=== PATIENT | female | born 1950 | race Caucasian/White ===

== ENCOUNTER → 2016-11-16 | Outpatient (CLI) | payer MEDICARE ==
--- NOTE | 2016-11-16 11:58 | REPMRS ---
Patient History The patient states she had a clinical breast exam in Patient is postmenopausal. Family history of colorectal cancer in father at age 50 or over, prostate cancer in brother at age 50 or over, and colorectal cancer in brother at age 50 or over. Digital Woman Screen Mammo: November 16, 2016 - Exam #: [id number] Bilateral CC and MLO view(s) were taken. Technologist: Chichi Guadalupe, Technologist Prior study comparison: October 08, 2015, digital woman screen mammo performed at [facility]. January 19, 2014, digital woman screen mammo performed at [facility]. FINDINGS: There are scattered fibroglandular densities. There is a fairly symmetric fibroglandular pattern in both breasts. There has been no interval development of masses, areas of architectural distortion or clusters of microcalcifications typical of malignancy. No significant changes when compared with prior studies. ASSESSMENT: BI-RADS/ACR category 2 mammogram. Benign finding(s). Recommendation Routine screening mammogram of both breasts in 1 year (for women over age 40). This mammogram was interpreted with the aid of an FDA-approved computer-aided dectection system. Electronically Signed By: Marquez Turner MD 11/16/16 [id number]
== END ==
LOC: M WHC 10:47
PROVIDERS: ATTEND Nurse Practitioner Family
DX: Z12.31 Encounter for screening mammogram for malignant neoplasm of breast (principal); Z78.0 Asymptomatic menopausal state; Z80.0 Family history of malignant neoplasm of digestive organs; Z01.419 Encounter for gynecological examination (general) (routine) without abnormal findings; Z12.12 Encounter for screening for malignant neoplasm of rectum; N95.2 Postmenopausal atrophic vaginitis; N81.10 Cystocele, unspecified; N81.6 Rectocele
CPT/HCPCS: 82270; G0101; G0202

== ENCOUNTER → 2017-11-22 | Outpatient (CLI) | payer MEDICARE | LOC: M WHC 10:58 | DX: Z12.31 Encounter for screening mammogram for malignant neoplasm of breast (principal); Z01.419 Encounter for gynecological examination (general) (routine) without abnormal findings (principal); Z78.0 Asymptomatic menopausal state; Z80.0 Family history of malignant neoplasm of digestive organs; Z12.12 Encounter for screening for malignant neoplasm of rectum; N95.2 Postmenopausal atrophic vaginitis; N81.10 Cystocele, unspecified; N81.6 Rectocele | CPT/HCPCS: 77067 ==

== ENCOUNTER → 2018-11-21 | Outpatient (CLI) | payer MEDICARE ==
--- NOTE | 2018-11-21 18:59 | REPMRS ---
Patient History The patient states she had a clinical breast exam in 11/2018. Patient is postmenopausal. Family history of colorectal cancer at age 50 or over in brother, colorectal cancer at age 50 or over in father, prostate cancer at age 50 or over in brother. No Hormone Replacement Therapy Digital Woman Screen Mammo: November 21, 2018 - Exam #: [id number] Bilateral CC and MLO view(s) were taken. Technologist: Cynthia Lopez, Technologist Prior study comparison: November 22, 2017, digital woman screen mammo performed at [facility]. November 16, 2016, digital woman screen mammo performed at [facility]. FINDINGS: There are scattered fibroglandular densities. There has been no change in the appearance of the mammogram from the prior studies. There is a mild amount of residual fibroglandular tissue mostly in the retroareolar zones, which is fairly symmetric. There is no interval development of dominant mass, architectural distortion, or clustered microcalcification suggestive of malignancy. There are bilateral benign arterial calcifications noted. There are scattered, small, benign calcifications of doubtful clinical significance. 3-D tomosynthesis shows no additional findings. The patient's Tyrer-Cuzick lifetime risk assessment score is 2.0 %. No significant changes when compared with prior studies. Assessment: BI-RADS/ACR category 2 mammogram. Benign Findings. Recommendation Routine screening mammogram in 1 year (for women over age 40). This mammogram was interpreted with the aid of an FDA-approved computer-aided dectection system. A. Negative x-ray reports should not delay biopsy if a dominant or clinically suspicious mass is present. B. Four to eight percent of cancers are not identified by mammography. C. Adenosis and dense breast may obscure an underlying neoplasm. Electronically Signed By: Jamie Worley MD 11/21/18 [id number]
== END ==
LOC: M WHC 15:06
PROVIDERS: ATTEND Nurse Practitioner Family
DX: Z01.419 Encounter for gynecological examination (general) (routine) without abnormal findings (principal); Z12.31 Encounter for screening mammogram for malignant neoplasm of breast; Z78.0 Asymptomatic menopausal state; R92.1 Mammographic calcification found on diagnostic imaging of breast; Z12.12 Encounter for screening for malignant neoplasm of rectum
CPT/HCPCS: 77063; 77067; 82270; G0101

== ENCOUNTER → 2019-12-01 | Outpatient (CLI) | payer MEDICARE ==
[~2019-12-01] MED LIST: CALCTAB89 PO; MULTCAP PO; VITA-112 PO; VITA100T29 PO
--- NOTE | 2019-12-01 16:52 | REPMRS ---
Patient History The patient states she had a clinical breast exam in November 2019. Family history of colorectal cancer at age 50 or over in brother, colorectal cancer at age 50 or over in father, prostate cancer at age 50 or over in brother. No Hormone Replacement Therapy Digital Woman Screen Mammo: December 01, 2019 - Exam #: [id number] Bilateral CC and MLO view(s) were taken. Technologist: Ruby Willis, Technologist Prior study comparison: November 21, 2018, bilateral digital woman screen mammo performed at [facility]. November 22, 2017, digital woman screen mammo performed at [facility]. November 16, 2016, digital woman screen mammo performed at [facility]. FINDINGS: There are scattered fibroglandular densities. There has been no change in the appearance of the mammogram from the prior studies. There is a mild amount of scattered fibroglandular density which is fairly symmetric. There is no interval development of dominant mass, architectural distortion, or grouped microcalcification suggestive of malignancy. 3-D tomosynthesis shows no additional findings. Assessment: BI-RADS/ACR category 1 mammogram. Negative Mammogram. Recommendation Routine screening mammogram of both breasts in 1 year (for women over age 40). This patient's Lifetime Breast Cancer Risk is estimated at 1.9 %. This mammogram was interpreted with the aid of an FDA-approved computer-aided dectection system. Electronically Signed By: Jace Cheatham MD 12/01/19 [id number]
== END ==
LOC: M WHC 13:23
PROVIDERS: ATTEND Nurse Practitioner Family
DX: Z12.31 Encounter for screening mammogram for malignant neoplasm of breast (principal); Z80.0 Family history of malignant neoplasm of digestive organs; Z80.42 Family history of malignant neoplasm of prostate; R30.0 Dysuria
CPT/HCPCS: 77063; 77067; 81002; 87086; G0463

== ENCOUNTER → 2019-12-01 | Outpatient (REF) | payer MEDICARE | LOC: M SFHCWAGY 17:23 | PROVIDERS: ATTEND Nurse Practitioner Family | DX: R30.0 Dysuria (principal) ==

== ENCOUNTER → 2020-12-01 | Outpatient (CLI) | payer MEDICARE ==
--- NOTE | 2020-12-01 14:24 | REPMRS ---
Patient History The patient states she had a clinical breast exam in November 2020. Family history of colorectal cancer at age 50 or over in brother, colorectal cancer at age 50 or over in father, prostate cancer at age 50 or over in brother. No Hormone Replacement Therapy 3D TOMOSYNTHESIS WAS PERFORMED. [facility] lifetime risk for breast cancer is 1.8%. Volpara breast density b. Digital Woman Screen Mammo: December 01, 2020 - Exam #: [id number] Bilateral CC and MLO view(s) were taken. Technologist: RT Michelet Prior study comparison: December 01, 2019, bilateral digital woman screen mammo performed at [facility]. November 21, 2018, bilateral digital woman screen mammo performed at [facility]. FINDINGS: There are scattered fibroglandular densities. There has been no change in the appearance of the mammogram from the prior studies. There is a mild amount of residual fibroglandular tissue which is fairly symmetric. There is no interval development of dominant mass, architectural distortion, or clustered microcalcification suggestive of malignancy. Assessment: BI-RADS/ACR category 1 mammogram. Negative Mammogram. Recommendation Routine screening mammogram in 1 year (for women over age 40). This mammogram was interpreted with the aid of an FDA-approved computer-aided dectection system. Electronically Signed By: Marquez Turner MD 12/01/20 [id number]
== END ==
LOC: M WHC 12:54
PROVIDERS: ATTEND Nurse Practitioner Family
DX: Z12.31 Encounter for screening mammogram for malignant neoplasm of breast (principal); Z80.0 Family history of malignant neoplasm of digestive organs
CPT/HCPCS: 77063; 77067; G0463

== ENCOUNTER → 2021-03-10 | Outpatient (CLI) | payer MEDICARE ==
[2021-03-10 14:40] LABS: BASO % 0.3 % (0.0-1.0); EOS # 0.1 10^3/uL (0.0-0.5); EOS % 1.5 % (0.0-3.0); HEMATOCRIT 42.3 % (36.0-47.0); HEMOGLOBIN 13.9 g/dl (12.0-15.5); LYMPH # 1.6 10^3/uL (1.5-5.0); LYMPH % 24.1 % (24.0-44.0); MEAN CORPUSCULAR HEMOGLOBIN 28.4 pg (27.0-33.0); MEAN CORPUSCULAR HGB CONC 32.9 g/dl (32.0-36.5); MEAN CORPUSCULAR VOLUME 86.3 fl (80.0-96.0); MONO # 0.6 10^3/uL (0.0-0.8); MONO % 9.4 % (2.0-8.0); NEUTROPHILS # 4.3 10^3/uL (1.5-8.5); NEUTROPHILS % 64.4 % (36.0-66.0); PLATELET COUNT, AUTOMATED 202 10^3/uL (150-450); WHITE BLOOD COUNT 6.7 10^3/uL (4.0-10.0)
[2021-03-10 15:08] LABS: ERYTHROCYTE SEDIMENTATION RATE 27 mm/hr (0-30)
[2021-03-10 16:06] LABS: ALBUMIN 3.6 GM/DL (3.2-5.2); ALT/SGPT 25 U/L (12-78); BILIRUBIN,TOTAL 0.6 MG/DL (0.2-1.0); BLOOD UREA NITROGEN 20 MG/DL (7-18); CALCIUM LEVEL 9.2 MG/DL (8.8-10.2); CARBON DIOXIDE LEVEL 26 MEQ/L (21-32); CHLORIDE LEVEL 106 MEQ/L (98-107); CREATININE FOR GFR 0.86 MG/DL (0.55-1.30); FOLATE 18.2 NG/ML; GLOMERULAR FILTRATION RATE > 60.0 (>39); GLUCOSE, FASTING 92 MG/DL (70-100); POTASSIUM SERUM 3.9 MEQ/L (3.5-5.1); RHEUMATOID FACTOR QUANT < 10.0 IU/ML (<15.0); SODIUM LEVEL 141 MEQ/L (136-145); TOTAL PROTEIN 6.7 GM/DL (6.4-8.2); VITAMIN B12 LEVEL 759 PG/ML
[2021-03-10 18:32] LABS: HEMOGLOBIN A1c 5.8 %
== END ==
LOC: M LAB 13:49
PROVIDERS: ATTEND Psychiatry & Neurology Neurology
DX: G62.9 Polyneuropathy, unspecified (principal); R41.89 Other symptoms and signs involving cognitive functions and awareness

== ENCOUNTER → 2021-05-11 | Outpatient (REF) | payer MEDICARE ==
[2021-05-11 18:35] LABS: APPEARANCE, URINE HAZY (CLEAR); BACTERIA, URINE AUTO NEGATIVE (NEGATIVE); BILIRUBIN, URINE AUTO NEGATIVE (NEGATIVE); BLOOD, URINE BLOOD NEGATIVE (NEGATIVE); CALCIUM OXALATE CRYSTALS SMALL; COLOR, URINE YELLOW (YELLOW); GLUCOSE, URINE (UA) AUTO NEGATIVE (NEGATIVE); KETONE, URINE AUTO NEGATIVE (NEGATIVE); LEUKOCYTE ESTERASE, URINE AUTO NEGATIVE (NEGATIVE); MUCUS, URINE SMALL (NEGATIVE); NITRITE, URINE AUTO NEGATIVE (NEGATIVE); PROTEIN, URINE AUTO NEGATIVE (NEGATIVE); RBC, URINE AUTO 0 /HPF (0-3); SPECIFIC GRAVITY URINE AUTO 1.017 (1.002-1.035); SQUAMOUS EPITHELIAL CELL UR AU 0 /HPF (0-6); UROBILINOGEN, URINE AUTO 0.2 mg/dL (0.0-2.0); WBC, URINE AUTO 0 /HPF (0-3)
== END ==
LOC: M SMT 16:44
PROVIDERS: ATTEND Nurse Practitioner Family
DX: N39.0 Urinary tract infection, site not specified (principal)
CPT/HCPCS: 81001; 87086; G0463

== ENCOUNTER → 2021-06-09 | Outpatient (CLI) | payer MEDICARE ==
--- NOTE | 2021-06-09 11:42 | REP ---
INDICATION: UTI. COMPARISON: None. TECHNIQUE: Real-time transvesical sonographic evaluation of the urinary bladder FINDINGS: The pre void urinary bladder volume calculation is 68 cc and the postvoid urinary bladder volume calculation is 3 cc. This renders a 4% postvoid residual. Doppler of the UV junction shows uro jet phenomena bilaterally. No gross abnormalities are identified. IMPRESSION: As above <Electronically signed by Toni Ruvalcaba > 06/09/21 [id number]
--- NOTE | 2021-06-09 11:56 | REP ---
INDICATION: UTI. COMPARISON: 06/23/2015 TECHNIQUE: Real-time sonographic evaluation of the kidneys FINDINGS: Multiple ultrasonographic images of the right kidney show the right kidney to measure 10 x 5.4 x 4.9 cm. The renal cortical echotexture is unchanged from the prior exam. There is stable renal cortical thinning. There are no masses. There is good corticomedullary differentiation. There is no hydronephrosis. There are no perinephric fluid collections. Multiple ultrasonographic images of the left kidney show the left kidney to measure 9.8 x 5 x 6.1 cm. The renal cortical echotexture is unchanged from the prior exam. Renal cortical thinning is noted status quo.. There are no masses. There is good corticomedullary differentiation. There is no hydronephrosis. There are no perinephric fluid collections. IMPRESSION: No significant change from the prior exam as described above. <Electronically signed by Toni Ruvalcaba > 06/09/21 [id number]
== END ==
LOC: M RAD 10:58
PROVIDERS: ATTEND Nurse Practitioner Family
DX: N39.0 Urinary tract infection, site not specified (principal)

== ENCOUNTER → 2021-08-11 | Outpatient (REF) | payer MEDICARE ==
[~2021-08-11] MED LIST changes: +OXYB5TAB10 PO
[2021-08-11 17:41] LABS: APPEARANCE, URINE CLEAR (CLEAR); BACTERIA, URINE AUTO NEGATIVE (NEGATIVE); BILIRUBIN, URINE AUTO NEGATIVE (NEGATIVE); BLOOD, URINE BLOOD NEGATIVE (NEGATIVE); COLOR, URINE YELLOW (YELLOW); GLUCOSE, URINE (UA) AUTO NEGATIVE (NEGATIVE); KETONE, URINE AUTO NEGATIVE (NEGATIVE); LEUKOCYTE ESTERASE, URINE AUTO NEGATIVE (NEGATIVE); MUCUS, URINE SMALL (NEGATIVE); NITRITE, URINE AUTO NEGATIVE (NEGATIVE); PROTEIN, URINE AUTO NEGATIVE (NEGATIVE); RBC, URINE AUTO 1 /HPF (0-3); SPECIFIC GRAVITY URINE AUTO 1.018 (1.002-1.035); SQUAMOUS EPITHELIAL CELL UR AU 0 /HPF (0-6); UROBILINOGEN, URINE AUTO 0.2 mg/dL (0.0-2.0); WBC, URINE AUTO 3 /HPF (0-3)
== END ==
LOC: M SMT 16:44
PROVIDERS: ATTEND Nurse Practitioner Women's Health
DX: N39.46 Mixed incontinence (principal)
CPT/HCPCS: 81001; 87086; G0463

== ENCOUNTER 2021-08-24 11:59 | Emergency (ER) | payer MEDICARE ==
[~2021-08-24] VITALS: Ht 157.5 cm; Wt 63.6 kg
[~2021-08-24 11:59] MED LIST changes: -OXYB5TAB10 PO
[2021-08-24] MEDS ORDERED: NS 1,000 ML IV ONE (12:25)
[2021-08-24 12:39] LABS: BASO % 0.3 % (0.0-1.0); EOS % 0.1 % (0.0-3.0); HEMATOCRIT 41.3 % (36.0-47.0); HEMOGLOBIN 13.4 g/dl (12.0-15.5); LYMPH # 0.9 10^3/uL (1.5-5.0); LYMPH % 8.9 % (24.0-44.0); MEAN CORPUSCULAR HEMOGLOBIN 27.5 pg (27.0-33.0); MEAN CORPUSCULAR HGB CONC 32.4 g/dl (32.0-36.5); MEAN CORPUSCULAR VOLUME 84.8 fl (80.0-96.0); MONO # 0.4 10^3/uL (0.0-0.8); MONO % 3.6 % (2.0-8.0); NEUTROPHILS # 9.1 10^3/uL (1.5-8.5); NEUTROPHILS % 86.6 % (36.0-66.0); PLATELET COUNT, AUTOMATED 201 10^3/uL (150-450); RED BLOOD COUNT 4.87 10^6/uL (4.00-5.40); WHITE BLOOD COUNT 10.5 10^3/uL (4.0-10.0)
[2021-08-24] MEDS ORDERED: OXYB5TAB10 PO (12:50)
[2021-08-24 13:20] LABS: ALBUMIN 3.7 GM/DL (3.2-5.2); ALT/SGPT 30 U/L (12-78); BILIRUBIN,DIRECT 0.1 MG/DL (0.0-0.2); BILIRUBIN,TOTAL 0.6 MG/DL (0.2-1.0); BLOOD UREA NITROGEN 18 MG/DL (7-18); CALCIUM LEVEL 8.9 MG/DL (8.8-10.2); CARBON DIOXIDE LEVEL 27 MEQ/L (21-32); CHLORIDE LEVEL 107 MEQ/L (98-107); CREATININE FOR GFR 0.77 MG/DL (0.55-1.30); GLOMERULAR FILTRATION RATE > 60.0 (>39); GLUCOSE, FASTING 112 MG/DL (70-100); POTASSIUM SERUM 3.7 MEQ/L (3.5-5.1); SODIUM LEVEL 141 MEQ/L (136-145); TOTAL PROTEIN 6.8 GM/DL (6.4-8.2)
[2021-08-24] MEDS ORDERED: NS 500 ML IV ONE (14:05)
[2021-08-24] MEDS ORDERED: ISOVUE-370 76% 100ML VIAL As Ordered ONE (14:10)
[2021-08-24 15:22] VITALS: BP 118/66
== END 2021-08-24 16:39 | disposition home or self-care (01) ==
LOC: M ED 11:59
DX: I95.1 Orthostatic hypotension (principal); T88.7XXA Unspecified adverse effect of drug or medicament, initial encounter; R00.1 Bradycardia, unspecified; I44.4 Left anterior fascicular block; M79.7 Fibromyalgia; K21.9 Gastro-esophageal reflux disease without esophagitis; Z87.440 Personal history of urinary (tract) infections; Z87.891 Personal history of nicotine dependence; Z79.899 Other long term (current) drug therapy; Z88.2 Allergy status to sulfonamides
CPT/HCPCS: 70450; 71045; 71275; 80048; 80076; 81001; 84484; 85025; 87086; 87798; 93005; 93041; 94760; 96360; 96361; 99285; Q9967

== ENCOUNTER → 2022-11-16 | Outpatient (CLI) | payer MEDICARE ==
[~2022-11-16] MED LIST changes: +OXYB5TAB10 PO
[2022-11-16 11:45] LABS: BASO % 0.6 % (0.0-1.0); EOS # 0.1 10^3/uL (0.0-0.5); EOS % 0.9 % (0.0-3.0); HEMATOCRIT 43.7 % (36.0-47.0); HEMOGLOBIN 14.1 g/dl (12.0-15.5); LYMPH # 1.4 10^3/uL (1.5-5.0); LYMPH % 21.3 % (24.0-44.0); MEAN CORPUSCULAR HEMOGLOBIN 27.5 pg (27.0-33.0); MEAN CORPUSCULAR HGB CONC 32.3 g/dl (32.0-36.5); MEAN CORPUSCULAR VOLUME 85.2 fl (80.0-96.0); MONO # 0.6 10^3/uL (0.0-0.8); MONO % 9.2 % (2.0-8.0); NEUTROPHILS # 4.5 10^3/uL (1.5-8.5); NEUTROPHILS % 67.7 % (36.0-66.0); PLATELET COUNT, AUTOMATED 223 10^3/uL (150-450); RED BLOOD COUNT 5.13 10^6/uL (4.00-5.40); WHITE BLOOD COUNT 6.6 10^3/uL (4.0-10.0)
[2022-11-16 11:55] LABS: ERYTHROCYTE SEDIMENTATION RATE 26 mm/hr (0-30)
[2022-11-16 13:06] LABS: ALBUMIN 3.8 G/DL (3.2-5.2); ALKALINE PHOSPHATASE 89 U/L (46-116); ALT/SGPT 23 U/L (7.0-40); AST/SGOT 22 U/L (<34); BILIRUBIN,TOTAL 0.6 MG/DL (0.3-1.2); BLOOD UREA NITROGEN 18 MG/DL (9-23); CALCIUM LEVEL 10.3 MG/DL (8.3-10.6); CARBON DIOXIDE LEVEL 30 MMOL/L (20-31); CHLORIDE LEVEL 106 MMOL/L (98-107); CREATININE FOR GFR 0.95 MG/DL (0.55-1.30); FOLATE > 24.00 NG/ML (>5.4); GLOMERULAR FILTRATION RATE > 60.0 (>39); GLUCOSE, FASTING 91 MG/DL (74-106); POTASSIUM SERUM 4.2 MMOL/L (3.5-5.1); RHEUMATOID FACTOR QUANT < 3.5 IU/ML (<14); SODIUM LEVEL 143 MMOL/L (136-145); THYROID STIMULATING HORMONE 1.886 uIU/ML (0.55-4.78); TOTAL PROTEIN 6.6 G/DL (5.7-8.2); VITAMIN B12 LEVEL 989 PG/ML (211-911)
== END ==
LOC: M LAB 10:54
PROVIDERS: ATTEND Psychiatry & Neurology Neurology
DX: R41.89 Other symptoms and signs involving cognitive functions and awareness (principal)

== ENCOUNTER → 2023-01-30 | Outpatient (CLI) | payer MEDICARE | LOC: M WHC 15:00 | PROVIDERS: ATTEND Advanced Practice Midwife | DX: Z01.419 Encounter for gynecological examination (general) (routine) without abnormal findings (principal); Z12.31 Encounter for screening mammogram for malignant neoplasm of breast ==

== ENCOUNTER → 2023-03-15 | Outpatient (CLI) | payer MEDICARE ==
[2023-03-15 13:31] LABS: PROLACTIN 3.76 NG/ML
[2023-03-15 13:32] LABS: THYROID STIMULATING HORMONE 1.691 uIU/ML (0.55-4.78)
== END ==
LOC: M LAB 11:59
PROVIDERS: ATTEND Psychiatry & Neurology Neurology
DX: D35.2 Benign neoplasm of pituitary gland (principal)

== ENCOUNTER → 2024-03-04 | Outpatient (CLI) | payer MEDICARE ==
[~2024-03-04] MED LIST changes: -OXYB5TAB10 PO; +OXYB5TAB14 PO
== END ==
LOC: M WHC 10:55
PROVIDERS: ATTEND Advanced Practice Midwife
DX: Z12.31 Encounter for screening mammogram for malignant neoplasm of breast (principal); R92.323 Mammographic fibroglandular density, bilateral breasts

== ENCOUNTER 2024-07-28 10:11 | Day surgery (SDC) | payer MEDICARE ==
[~2024-07-28] VITALS: Ht 157.5 cm; Wt 68.2 kg
[~2024-07-28 10:11] MED LIST changes: +B-12100010 PO; +CYCL-707 PO; +L-LY500T6 PO; +MAGN250T7 PO; +MELO7.5T35 PO; +NS 250 ML IV ONE; +OYST1TAB PO; +POTA99CA2 PO; +THERTAB52 PO; +VITA-158 PO; +XALA0.007 OU
[2024-07-28] MEDS ORDERED: propofoL 200 MG/20 ML VIAL As Ordered ONE (10:45)
[2024-07-28] MEDS ORDERED: LIDOCAINE 2% 100MG/5ML SDV (FOR ANES.) As Ordered ONE (10:45)
[2024-07-28 11:29] VITALS: TEMP 97.2
[2024-07-28 11:49] VITALS: BP 131/94; O2SAT 95
== END 2024-07-28 11:52 | disposition home or self-care (01) ==
LOC: M OPP 10:11
PROVIDERS: ATTEND Internal Medicine Gastroenterology
DX: Z12.11 Encounter for screening for malignant neoplasm of colon (principal); Z12.12 Encounter for screening for malignant neoplasm of rectum; K64.0 First degree hemorrhoids; K57.30 Diverticulosis of large intestine without perforation or abscess without bleeding; R32 Unspecified urinary incontinence; Z79.899 Other long term (current) drug therapy; Z90.710 Acquired absence of both cervix and uterus; Z88.2 Allergy status to sulfonamides; Z88.8 Allergy status to other drugs, medicaments and biological substances; Z87.891 Personal history of nicotine dependence